=== PATIENT | male | born 1955 | race Caucasian/White ===

== ENCOUNTER → 2016-05-07 | Outpatient (CLI) | payer OTHER ==
[2013-11-15 14:15] VITALS: BP 148/90
[2016-05-07 12:08] LABS: HEMATOCRIT 33.2 % (39.0-53.0); HEMOGLOBIN 10.4 g/dL (13.0-17.5); RED BLOOD COUNT 4.59 x10^6/uL (4.30-5.70); WHITE BLOOD COUNT 5.7 x10^3/uL (4.0-11.0)
[2016-05-07 12:25] LABS: ALBUMIN 3.9 g/dL (3.4-5.0); ALBUMIN/GLOBULIN RATIO 1.2 (1.0-1.7); CALCIUM 8.7 mg/dL (8.5-10.1); GFR 76.2; POTASSIUM 4.3 mmol/L (3.5-5.1); TOTAL BILIRUBIN 0.3 mg/dL (0.2-1.0); TOTAL PROTEIN 7.2 g/dL (6.4-8.2)
[2016-05-07 12:30] LABS: CHOLESTEROL/HDL RATIO 3.1
== END | disposition home or self-care (01) ==
LOC: LAB 11:39
PROVIDERS: ATTEND Family Medicine
DX: Z00.00 Encounter for general adult medical examination without abnormal findings (principal); Z12.5 Encounter for screening for malignant neoplasm of prostate; Z13.220 Encounter for screening for lipoid disorders
CPT/HCPCS: 36415; 80053; 80061; 85027; G0103

== ENCOUNTER 2017-11-21 10:27 | Emergency (ER) | payer OTHER ==
[~2017-11-21] VITALS: Ht 182.9 cm; Wt 99.8 kg
--- NOTE | 2017-11-21 11:38 | RAD ---
Right shoulder, 3 views, 11/21/2017: HISTORY: Fall, shoulder pain No fracture or dislocation is identified. There is mild degenerative change at the glenohumeral and acromioclavicular articulations. IMPRESSION: 1. Mild degenerative change. 2. No acute bony abnormality is detected. Right humerus, 2 views, 11/21/2017: No fracture or bony abnormality is detected. IMPRESSION: No acute right humeral abnormality is identified. Electronically signed by: Ramu Beard MD (11/21/2017 11:35 AM) [facility]
[2017-11-21 12:19] VITALS: BP 139/87
[2017-11-21] MEDS ORDERED: CYCL10TA2 PO (12:21)
[2017-11-21] MEDS ORDERED: DICL50TA2 PO (12:21)
[2017-11-21] MEDS ORDERED: METH4TAB2 PO (12:21)
--- NOTE | 2017-11-21 12:21 | PHYS DOC ---
Past Medical History Past Medical History: No Pertinent History Past Surgical History: No Surgical History Alcohol Use: Occasionally Drug Use: None Adult General Chief Complaint Chief Complaint: SHOULDER INJURY HPI HPI Patient is a 61 year old male with no significant medical history who presents today complaining of 2 out of 10 right humerus pain that began 2 weeks ago after he fell in [place]. Patient states the pain is worse when he tries to raise his right upper extremity above his head. He states he has been taking [id number] NSAIDs with some relief. Review of Systems Review of Systems Constitutional: Denies fever or chills [] Musculoskeletal: Reports right humerus pain Integument: Denies rash or skin lesions [] Neurologic: Denies headache, focal weakness or sensory changes [] All other systems were reviewed and found to be within normal limits, except as documented in this note. Allergies Allergies Allergies Coded Allergies Type Severity Reaction Last Updated Verified No Known Drug Allergies 11/15/13 No Physical Exam Physical Exam Constitutional: Well developed, well nourished, no acute distress, non-toxic appearance. [][] Skin: Warm, dry, no erythema, no rash. [] Back: No tenderness, no CVA tenderness. [] Extremities: Right biceps with bruising. Tenderness on palpation of the area. Full active as well as passive range of motion to the right upper extremity. +2 right radial pulse. Adequate radial, medial and ulnar sensation to the right upper extremity. Cap refill less than 2 seconds the right fingers. Neurologic: Alert and oriented X 3, normal motor function, normal sensory function, no focal deficits noted. [] Psychologic: Affect normal, judgement normal, mood normal. [] Current Patient Data Vital Signs Vital Signs Date Time Temp Pulse Resp B/P (MAP) Pulse Ox O2 Delivery O2 Flow Rate FiO2 11/21/17 12:19 87 20 139/87 (104) 98 Room Air 11/21/17 11:22 98.2 98.2 EKG EKG [] Radiology/Procedures Radiology/Procedures []PROCEDURE: HUMERUS RIGHT Right shoulder, 3 views, 11/21/2017: HISTORY: Fall, shoulder pain No fracture or dislocation is identified. There is mild degenerative change at the glenohumeral and acromioclavicular articulations. IMPRESSION: 1. Mild degenerative change. 2. No acute bony abnormality is detected. Right humerus, 2 views, 11/21/2017: No fracture or bony abnormality is detected. IMPRESSION: No acute right humeral abnormality is identified. Electronically signed by: Ramu Beard MD (11/21/2017 11:35 AM) [facility] DICTATED and SIGNED BY: RAMU BEARD MD DATE: 11/21/17 1134 You were Course & Med Decision Making Course & Med Decision Making Pertinent Labs and Imaging studies reviewed. (See chart for details) This is a 61-year-old male patient presenting to the ED today with right humerus pain that began 2 weeks ago after he fell skiing in [place]. Right shoulder and right humerus x-rays interpreted by radiologist were negative for any acute findings. Djd noted to the right shoulder. Patient was discharged with Medrol Dosepak, diclofenac and cyclobenzaprine. Provided orthopedic doctor for follow-up. Ice elevation encouraged. Staff Physician Addendum: I was working in the ER during the course of this patient's visit. I was available for consultation as needed, but I was not directly involved in the care of this patient. Dragon Disclaimer Dragon Disclaimer This electronic medical record was generated, in whole or in part, using a voice recognition dictation system. Departure Departure Impression: Primary Impression: Fall Additional Impressions: Contusion of right shoulder DJD of right shoulder Disposition: 01 HOME, SELF-CARE Condition: STABLE Referrals: OLYA VIDES MD (PCP) SWETHA RIVERA MD follow up as soon as you can Patient Instructions: Arthritis, Degenerative-Brief, Contusion, [id number], Fall Prevention and Home Safety Additional Instructions: You were elevated in the emergency room for right shoulder contusion after falling. Your right shoulder and humerus x-rays were negative for any acute findings, you were noted for arthritis in the right shoulder. We provided you an orthopedic doctor, contact the office and set up a follow-up appointment as soon as you can. Ice elevate the affected extremity. Take the prescribed medications as ordered. Scripts Cyclobenzaprine Hcl (CYCLOBENZAPRINE HCL) 10 Mg Tablet 1 TAB PO TID, #30 TAB Prov: MUTUNGACA STATISTICIAN MATHEMATICAL 11/21/17 Diclofenac Potassium (DICLOFENAC POTASSIUM) 50 Mg Tablet 1 TAB PO BID, #20 TAB 0 Refills Prov: MUTUNGA,CA STATISTICIAN MATHEMATICAL 11/21/17 Methylprednisolone (MEDROL) 4 Mg Tab.ds.pk 1 PKG PO UD, #1 PKG Prov: CA ZHANG STATISTICIAN MATHEMATICAL 11/21/17 Problem Qualifiers Primary Impression: Fall Encounter type: initial encounter Qualified Codes: W19.XXXA - Unspecified fall, initial encounter Additional Impressions: Contusion of right shoulder Encounter type: initial encounter Qualified Codes: S40.011A - Contusion of right shoulder, initial encounter DJD of right shoulder Osteoarthritis type: unspecified Qualified Codes: M19.011 - Primary osteoarthritis, right shoulder CA ZHANG STATISTICIAN MATHEMATICAL Nov 21, 2017 12:21 KEI CHENG MD Nov 21, 2017 12:26
== END 2017-11-21 12:34 | disposition home or self-care (01) ==
LOC: ER 10:27
DX: S40.011A Contusion of right shoulder, initial encounter (principal); M19.011 Primary osteoarthritis, right shoulder; W19.XXXA Unspecified fall, initial encounter; Y93.89 Activity, other specified; Y92.89 Other specified places as the place of occurrence of the external cause; Y99.8 Other external cause status
CPT/HCPCS: 73030; 73060; 99284

== ENCOUNTER → 2018-06-22 | Outpatient (CLI) | payer OTHER ==
[~2018-06-22] MED LIST: CYCL10TA2 PO; DICL50TA2 PO; METH4TAB2 PO
[2018-06-22 08:15] LABS: CHOLESTEROL/HDL RATIO 2.1
== END | disposition home or self-care (01) ==
LOC: LAB 07:21
PROVIDERS: ATTEND Family Medicine
DX: Z12.5 Encounter for screening for malignant neoplasm of prostate (principal); Z13.220 Encounter for screening for lipoid disorders
CPT/HCPCS: 36415; 80061; G0103

== ENCOUNTER → 2018-11-10 | Day surgery (SDC) | payer OTHER ==
[~2018-11-10] MED LIST changes: +ASPI81TA50 PO; +IV RINGERS,LACTATED 1000ML 1,000 ML IV SCH; +LIDOCAINE 2% PF 5 ML VIAL. ONE; +PROPOFOL 20 ML IV ONE
[2018-11-10 07:47] VITALS: BP 133/74
== END ==
LOC: ENDOS 06:15
PROVIDERS: ATTEND Internal Medicine Gastroenterology
DX: Z12.11 Encounter for screening for malignant neoplasm of colon (principal); K64.0 First degree hemorrhoids; Z86.010 Personal history of colon polyps; Z72.89 Other problems related to lifestyle; Z79.899 Other long term (current) drug therapy; Z98.890 Other specified postprocedural states; Z80.0 Family history of malignant neoplasm of digestive organs; Z83.71 Family history of colonic polyps
CPT/HCPCS: 45378; J2001; J2704